=== PATIENT | male | born 1940 ===

== ENCOUNTER 2017-01-27 07:38 | Day surgery (SDC) | payer MEDICARE, OTHER ==
[2017-01-19 08:11] VITALS: BMI 33.4
[2017-01-27] MEDS ORDERED: Midazolam 2 MG/2 ML VIAL ONE (08:50)
[2017-01-27] MEDS ORDERED: Propofol 10 mg/ml Inj (20 ML) ONE (08:50)
[2017-01-27] MEDS ORDERED: Rocuronium 10 mg/ml (5 ml) ONE (08:53)
[2017-01-27] MEDS ORDERED: Lactated Ringer's 1,000 ML IV ONE (09:50)
[2017-01-27] MEDS ORDERED: ceFAZolin IV 1 gm in Dextrose 50 ML IVPB ONE (09:56)
[2017-01-27] MEDS ORDERED: HYDROmorphone 0.5 mg/0.5 ml ISec IVP PRN (10:18)
[2017-01-27] MEDS ORDERED: Morphine 4 MG/ML VIAL ONE (10:33)
[2017-01-27] MEDS ORDERED: Oxycodone/Acetaminophen 5/325 mg Tab PO PRN (10:48)
--- NOTE | 2017-01-27 10:49 | PCM.SURG1 ---
Surgeon's Initial Post Op Note - Surgeon's Notes Surgeon: Tacos Crusher Screen Repairer: PGY3, Nichole PGY1 Type of Anesthesia: General LMA Pre-Operative Diagnosis: Incarcerated Umbilical Hernia Operative Findings: Incarcerated Umbilical Hernia Post-Operative Diagnosis: Incarcerated Umbilical Hernia Operation Performed: Umbilical hernia repair with mesh Specimen/Specimens Removed: N/A Estimated Blood Loss: EBL {In ML}: 2 Blood Products Given: N/A Drains Used: No Drains Post-Op Condition: Good Date of Surgery/Procedure: 01/27/17 Time of Surgery/Procedure: 09:50
--- NOTE | 2017-01-27 19:32 | OP ---
PROCEDURE DATE: 01/27/2017 SURGEON: Dr. Balderrama. INVESTMENT RECOVERY TECHNICIAN: Dr. Lee and Dr. Varela. ANESTHESIA: General, Dr. Morrison. PREOPERATIVE DIAGNOSIS: Incarcerated umbilical hernia. POSTOPERATIVE DIAGNOSIS: Incarcerated umbilical hernia. PROCEDURE: Umbilical hernia repair with mesh. DESCRIPTION OF OPERATION: With the patient in the supine position under general anesthesia, the abdo men was prepped and draped in the usual sterile manner. The patient was noted to have a 1 inch mass at the left aspect of the umbilicus, which was partially reducible. A longitudinal incision was made along the left end of the umbilicus and the umbilical skin was elevated medially and laterally off a large hernia sac, which was noted to contain what appeared to be the preperitoneal fat. Under direc t vision, as the hernia contents were freed from the surrounding subcutaneous tissue, the contents we re completely reduced into the peritoneal cavity. The defect was palpated and it was approximately 1 inch in diameter and noted to exit just a few millimeters to the left of the actual umbilical stalk. No defect was noted at the umbilical stalk. The umbilical stalk was dissected and then divided at the level of the abdominal wall to allow placement of a mesh and after clearing the abdominal surface of the abdominal wall of any adhesions, a size medium double layered hernia mesh was placed in to the defect. The round internal leaf of the mesh was rotated to allow complete deployment and the outer layer of mesh was trimmed to fit well within the subcutaneous tissue over the defect. The stal k of the mesh was then sutured circumferentially to the edge of the fascia using interrupted sutures of 2-0 Prolene. The umbilical stalk was tacked down to the area of the repair using a single suture of 4-0 Vicryl and the subcutaneous tissue was approximated with a few sutures of 4-0 Vicryl. Subcuti cular closure was performed with running suture of 4-0 Monocryl and Steri-Strips. A dry sterile dres sing was applied. The patient tolerated the procedure well and transferred to the recovery room in s table condition. Estimated blood loss for the procedure was 2 mL. Valerie Balderrama MD cc: [id number] TT: 01/27/2017 19:32:12 dn
[2017-01-28 15:59] VITALS: BP 162/60; PULSE 62; RESP 18; TEMP 97.3; O2SAT 100
== END 2017-01-27 13:20 | disposition home or self-care (01) ==
LOC: C.SDS 07:38
PROVIDERS: ATTEND Specialist
DX: K42.9 Umbilical hernia without obstruction or gangrene (principal)
CPT/HCPCS: 49585; C1781; J0690; J1100; J1885; J2250; J2270; J2405; J2704; J3010; J7120